=== PATIENT | female | born 1980 ===

== ENCOUNTER → 2020-10-20 | Outpatient (CLI) | payer OTHER | END | disposition home or self-care (01) | LOC: STAR 11:50 → MERGE 12:30 | PROVIDERS: ATTEND Orthopaedic Surgery Hand Surgery | DX: Z20.822 Contact with and (suspected) exposure to COVID-19 (principal); M25.839 Other specified joint disorders, unspecified wrist | CPT/HCPCS: U0003; U0005 ==

== ENCOUNTER 2020-10-26 07:27 | Day surgery (SDC) | payer BC, OTHER ==
[~2020-10-26] VITALS: Ht 160 cm; Wt 55.6 kg
[2020-10-26] MEDS ORDERED: FENTANYL PF 100 MCG/2ML ONE (08:06)
[2020-10-26] MEDS ORDERED: MIDAZOLAM 1 MG/ML, 2ML ONE (08:06)
[2020-10-26] MEDS ORDERED: NO HOME MEDS PER PT (08:13)
[2020-10-26 08:15] VITALS: BP 107/73
[2020-10-26] MEDS ORDERED: CHLORHEXIDINE 15 ML UDC ONE (08:17)
[2020-10-26 08:29] LABS: HCG UR SG 1.004 (1.003-1.030)
[2020-10-26] MEDS ORDERED: CHLORHEXIDINE 15 ML UDC PO ONE (08:30)
[2020-10-26] MEDS ORDERED: LACTATED RINGERS 1,000 ML IV SCH (08:30)
[2020-10-26] MEDS ORDERED: KETOROLAC 30 MG/1 ML ONE (09:07)
[2020-10-26] MEDS ORDERED: CEFAZOLIN 1,000 MG ONE (09:07)
[2020-10-26] MEDS ORDERED: ONDANSETRON 2MG/ML, 2ML ONE (09:07)
[2020-10-26] MEDS ORDERED: EPHEDRINE 50 MG/ML, 1ML ONE (09:07)
[2020-10-26] MEDS ORDERED: DEXAMETHASONE 4 MG/ML, 1ML ONE (09:07)
[2020-10-26] MEDS ORDERED: PROPOFOL 10 MG/ML, 20ML ONE (09:07)
[2020-10-26] MEDS ORDERED: KETOROLAC 30 MG/1 ML IVPush PRN (09:30)
[2020-10-26] MEDS ORDERED: METOPROLOL 1 MG/ML, 5ML IV PRN (09:30)
[2020-10-26] MEDS ORDERED: LABETALOL 5MG/ML, 20ML IV PRN (09:30)
[2020-10-26] MEDS ORDERED: FENTANYL PF 100 MCG/2ML IV PRN (09:30)
[2020-10-26] MEDS ORDERED: PROMETHAZINE 25 MG/ML, 1ML IVPush PRN (09:30)
[2020-10-26] MEDS ORDERED: hydrALAzine 20 MG/ML, 1ML IV PRN (09:30)
[2020-10-26] MEDS ORDERED: ONDANSETRON 2MG/ML, 2ML IVPush PRN (09:30)
[2020-10-26] MEDS ORDERED: HALOPERIDOL 5 MG/ML IV PRN (09:30)
[2020-10-26] MEDS ORDERED: ACETAMINOPHEN 325 MG TABLET PO PRN (09:30)
[2020-10-26] MEDS ORDERED: MEPERIDINE/PF 25MG/0.5ML IVPush PRN (09:30)
[2020-10-26] MEDS ORDERED: HYDROmorphone 1 MG/ML, 1ML INJ IVPush PRN (09:30)
[2020-10-26] MEDS ORDERED: DIPHENHYDRAMINE 50 MG/ML, 1ML IVPush PRN (09:30)
[2020-10-26] MEDS ORDERED: DIAZEPAM 5 MG/ML, 2ML IVPush PRN (09:30)
[2020-10-26] MEDS ORDERED: METOCLOPRAMIDE 5 MG/ML, 2ML IVPush PRN (09:30)
[2020-10-26] MEDS ORDERED: EPHEDRINE 50 MG/ML, 1ML IVPush PRN (09:30)
[2020-10-26] MEDS ORDERED: LIDOCAINE-MPF 1%, 5ML ONE (10:00)
[2020-10-26] MEDS ORDERED: BUPIVACAINE/PF 0.5% ONE (10:00)
[2020-10-26] MEDS ORDERED: HYDROmorphone 1 MG/ML, 1ML INJ ONE (10:10)
[2020-10-26] MEDS ORDERED: OXYcodone 5 MG/5 ML ORAL.SOL UDC ONE (11:05)
[2020-10-26] MEDS ORDERED: ACETAMINOPHEN 650 MG/20.3 ML UDC ONE (11:05)
[2020-10-26] MEDS: OXYcodone 5 MG/5 ML ORAL.SOL UDC PO PRN ×2 (11:10→11:57)
== END 2020-10-26 12:45 | disposition home or self-care (01) ==
LOC: OUT 07:27 → EDBD 09:15 → OUT 12:45
PROVIDERS: ATTEND Orthopaedic Surgery Hand Surgery
DX: M25.831 Other specified joint disorders, right wrist (principal); Z79.899 Other long term (current) drug therapy
CPT/HCPCS: 25825; 73100; 81025; C1713; J0690; J1100; J1170; J1885; J2250; J2405; J2704; J3010; J7120; 76000